=== PATIENT | female | born 1965 ===

== ENCOUNTER 2018-04-20 08:54 | Emergency (ER) | payer MEDICARE, OTHER ==
[2018-04-20 09:01] VITALS: BMI 25.7
[2018-04-20] MEDS ORDERED: Iohexol 240 (50 ml) PO STA (09:23)
[2018-04-20] MEDS ORDERED: Sodium Chloride 0.9% 1,000 ML IV ONE (09:23)
[2018-04-20] MEDS ORDERED: Iohexol 240 (50 ml) ONE (09:51)
[2018-04-20] MEDS ORDERED: Sodium Chloride 0.9% 1,000 ML ONE (09:52)
[2018-04-20 09:57] LABS: SQUAMOUS EPITHIAL < 1 /hpf (0-5); URINE BILIRUBIN NEGATIVE (NEGATIVE); URINE CLARITY Clear (Clear); URINE COLOR Yellow (YELLOW); URINE GLUCOSE (UA) NORMAL (Normal); URINE LEUKOCYTE ESTERASE NEG Leu/uL (Negative); URINE PROTEIN NEGATIVE (NEGATIVE); URINE UROBILINOGEN NORMAL mg/dL (0.2-1.0)
[2018-04-20 09:58] LABS: URINE BLOOD 1+ (NEGATIVE)
[2018-04-20 10:15] LABS: BASO # 0.1 K/uL (0.0-0.2); BASO % 1.2 % (0.0-2.0); EOS # 0.1 K/uL (0.0-0.7); EOS % 1.7 % (0.0-4.0); HEMOGLOBIN 12.7 g/dL (11.0-16.0); LYMPH % 34.2 % (20.0-40.0); MEAN CELL VOLUME 80.9 fL (81.0-99.0); MEAN CORPUSCULAR HEMOGLOBIN 25.8 pg (27.0-31.0); MEAN CORPUSCULAR HGB CONC 31.9 g/dL (33.0-37.0); MEAN PLATELET VOLUME 9.6 fL (7.2-11.7); MONO # 0.9 K/uL (0.0-0.8); MONO % 14.7 % (0.0-10.0); NEUT # 2.8 K/uL (1.8-7.0); NEUT % 48.2 % (50.0-75.0); NRBC % 0.1 % (0.0-2.0); RBC 4.92 Mil/uL (3.80-5.20); RED CELL DISTRIBUTION WIDTH 13.3 % (11.5-14.5); WHITE BLOOD COUNT 5.8 K/uL (4.8-10.8)
[2018-04-20 10:22] LABS: ALB/GLOB RATIO 1.2 (1.0-2.1); ALBUMIN 3.8 g/dL (3.5-5.0); ALT/SGPT 25 U/L (9-52); AST/SGOT 28 U/L (14-36); BLOOD UREA NITROGEN 12 mg/dL (7-17); CALCIUM 9.1 mg/dl (8.6-10.4); GFR NON-AFRICAN AMERICAN > 60; LIPASE 63 U/L (23-300)
[2018-04-20] MEDS ORDERED: Potassium Chloride 20 mEq/15 ml LIQ UD PO STA (10:25)
[2018-04-20] MEDS ORDERED: Potassium Chloride 20 mEq ER Tab PO ONE (10:35)
--- NOTE | 2018-04-20 11:01 | C.PDOC ---
History Of Present Illness 52 year old female presents to ED complaining of sharp intermittent left lower abdominal pain for 2 days that is cramping. States she had one episode of vomiting yesterday and had normal bowel movement. Otherwise she denies any feve r, flank pain, or dysuria. Time Seen by Provider: 04/20/18 09:07 Chief Complaint (Nursing): Abdominal Pain History Per: Patient History/Exam Limitations: no limitations Onset/Duration Of Symptoms: Days Current Symptoms Are (Timing): Still Present Past Medical History Reviewed: Historical Data, Nursing Documentation, Vital Signs Vital Signs: Last Vital Signs Temp 99.4 F 04/20/18 09:01 Pulse 119 H 04/20/18 09:22 Resp 22 04/20/18 09:22 BP 116/71 04/20/18 09:22 Pulse Ox 99 04/20/18 09:01 - Medical History PMH: Anxiety, Arthritis, Back Problems, Cardia Arrhythmia, Depression, Hyperthyroidism, Hypothyroidism Surgical History: Cholecystectomy, Endoscopy - [facility] Procedures INJECT/INFUSE NEC (03/08/14) Family History: States: No Known Family Hx - Social History Hx Tobacco Use: No Hx Alcohol Use: No Hx Substance Use: No - Immunization History Hx Tetanus Toxoid Vaccination: No Hx Influenza Vaccination: Yes Hx Pneumococcal Vaccination: No Review Of Systems Constitutional: Negative for: Fever Gastrointestinal: Positive for: Vomiting, Abdominal Pain (LLQ). Negative for: Other (Flank pain) Genitourinary: Negative for: Dysuria Physical Exam - Physical Exam Appears: Well, Non-toxic, No Acute Distress Skin: Warm, Dry, No Rash Head: Atraumatic, Normacephalic Eye(s): bilateral: Normal Inspection Oral Mucosa: Moist Neck: Normal ROM Chest: Symmetrical Cardiovascular: Rhythm Regular, No Murmur Respiratory: Normal Breath Sounds, No Rales, No Rhonchi, No Wheezing Gastrointestinal/Abdominal: Bowel Sounds (Normal), Soft, Tenderness (to LLQ), No Guarding, No Rebound Extremity: Bilateral: Atraumatic, Normal Color And Temperature, Normal ROM Neurological/Psych: Oriented x3, Normal Speech Gait: Steady ED Course And Treatment - Laboratory Results Result Diagrams: 04/20/18 10:00 04/20/18 10:00 Interpretation Of ECG: Normal sinus rhythm. No U waves. Rate From EC O2 Sat by Pulse Oximetry: 99 (RA) Pulse Ox Interpretation: Normal - CT Scan/US CT Abd/Pel Other Rad Studies (CT/US): Read By Radiologist, Radiology Report Reviewed CT/US Interpretation: FINDINGS: LOWER THORAX: The visualized lungs are clear. LIVER: Normal in size and fatty liver. No gross lesion . GALLBLADDER AND BILE DUCTS: Surgically absent. Mild intra and extrahepatic biliary ductal dilatation is in keeping with postcholecystectomy status. PANCREAS: Normal in size with homogeneous enhancement. No gross lesion or ductal dilatation. SPLEEN: Normal in size and appearance. ADRENALS: No discrete nodule. KIDNEYS AND URETERS: Normal in size with homogeneous enhancement. No hydronephrosis. No solid mass. VASCULATURE: No aortic aneurysm. BOWEL: The small bowel loops are normal in caliber. The colon is grossly normal in appearance. No bowel wall thickening or obstruction. APPENDIX: Normal appendix. PERITONEUM: No free fluid. No free air. LYMPH NODES: No enlarged lymph nodes. BLADDER: Well distended and normal in appearance. REPRODUCTIVE: The uterus is normal in size. BONES: No acute fracture. Grade 1 anterior listhesis of L4 on L5. OTHER FINDINGS: None. IMPRESSION: No acute abdominal or pelvic abnormality. Medical Decision Making Medical Decision Making: Impression: abdominal pain Plan: --CT Abd/Pel --EKG --Bloodwork --Omnipaque --Potassium Chloride --IV Fluids --Toradol --Urinalysis Progress: Labs reviewed and patient has hypokalemia 2.9. Patient was treated with oral and IV KCl EKG obtained and normal sinus. CT reviewed with no acute intrabdominal pathology Patient remained well in no acute distress. Patient was on secured entrance monitor with no rhythm changes. She reported feeling better, no fever and stable vital signs. Patient informed of results and stable for discharge and to follow up with PMD Disposition Counseled Patient/Family Regarding: Diagnosis, Need For Followup, Rx Given - Disposition Referrals: Tung Carter MD [Medical Doctor] - Disposition: HOME/ ROUTINE Disposition Time: 14:56 Condition: GOOD Additional Instructions: Hoy te evaluaron por dolor abdominal y vmitos. June laboratorios muestran potasio bajo y fueron tratados. La TC del abdomen era normal. Asegrese de comer alimentos balanceados y alimentos con potasio. Seguimiento con gastelum mdico o clnica. Prescriptions: Potassium Chloride 10 meq PO DAILY #4 capsule.er Instructions: Hypokalemia (DC), High Potassium Diet Print Language: INDONESIAN - POA Present On Arrival: None - Clinical Impression Clinical Impression: Hypokalemia - PA / WELDING SUPERVISOR / Resident Statement MD/DO has reviewed & agrees with the documentation as recorded. - Scribe Statement The provider has reviewed the documentation as recorded by the Scribe Alberta Tripathi All medical record entries made by the Frankieibdavid were at my direction and personally dictated by me. I have reviewed the chart and agree that the record accurately reflects my personal performance of the history, physical exam, medical decision making, and the department course for this patient. I have also personally directed, reviewed, and agree with the discharge instructions and disposition.
[2018-04-20] MEDS ORDERED: Iodixanol 320 MG/ML 100 ML BOTTLE IV ONE (11:28)
[2018-04-20 12:28] VITALS: RESP 18
--- NOTE | 2018-04-20 12:49 | CT ---
Date of service: 04/20/2018 PROCEDURE: CT Abdomen and Pelvis with contrast HISTORY: LLQ abd pain COMPARISON: 03/19/2014. TECHNIQUE: CT scan of the abdomen and pelvis was performed after administration of intravenous contrast. Oral contrast was administered. Coronal and sagittal reformatted images were obtained. Contrast dose: 100 mL Visipaque Radiation dose: Total exam DLP = 342.85 mGy-cm. This CT exam was performed using one or more of the following dose reduction techniques: Automated exposure control, adjustment of the mA and/or kV according to patient size, and/or use of iterative reconstruction technique. FINDINGS: LOWER THORAX: The visualized lungs are clear. LIVER: Normal in size and fatty liver. No gross lesion . GALLBLADDER AND BILE DUCTS: Surgically absent. Mild intra and extrahepatic biliary ductal dilatation is in keeping with postcholecystectomy status. PANCREAS: Normal in size with homogeneous enhancement. No gross lesion or ductal dilatation. SPLEEN: Normal in size and appearance. ADRENALS: No discrete nodule. KIDNEYS AND URETERS: Normal in size with homogeneous enhancement. No hydronephrosis. No solid mass. VASCULATURE: No aortic aneurysm. BOWEL: The small bowel loops are normal in caliber. The colon is grossly normal in appearance. No bowel wall thickening or obstruction. APPENDIX: Normal appendix. PERITONEUM: No free fluid. No free air. LYMPH NODES: No enlarged lymph nodes. BLADDER: Well distended and normal in appearance. REPRODUCTIVE: The uterus is normal in size. BONES: No acute fracture. Grade 1 anterior listhesis of L4 on L5. OTHER FINDINGS: None. IMPRESSION: No acute abdominal or pelvic abnormality.
[2018-04-20 12:54] VITALS: O2SAT 99
[2018-04-20] MEDS ORDERED: Potassium Chloride 20 mEq 100 ML ONE (13:04)
[2018-04-20 14:47] VITALS: BP 129/87; PULSE 107; TEMP 98.3
--- NOTE | 2018-04-22 14:53 | CARD ---
APPROVED REPORT Date of service: 04/20/2018 EKG Measurement Heart [id number] <Conclusion> Normal sinus rhythm Nonspecific T wave abnormality Prolonged QT Abnormal ECG
== END 2018-04-20 15:31 | disposition home or self-care (01) ==
LOC: C.ER 08:54
DX: E87.6 Hypokalemia (principal)
CPT/HCPCS: 74177; 80053; 81001; 83690; 84703; 85025; 93005; 96361; 96374; 99285; J1885; J3480; J7030; Q9966; Q9967

== ENCOUNTER 2018-06-18 14:39 | Outpatient (CLI) | payer MEDICARE | END 2018-06-18 14:40 | disposition home or self-care (01) | LOC: C.MRIC 14:39 | DX: M23.90 Unspecified internal derangement of unspecified knee (principal); M24.819 Other specific joint derangements of unspecified shoulder, not elsewhere classified ==

== ENCOUNTER 2018-07-07 07:37 | Outpatient (CLI) | payer MEDICARE, OTHER | END 2018-07-07 07:38 | disposition home or self-care (01) | LOC: C.NUCMED 07:37 ==

== ENCOUNTER 2018-07-08 09:02 | Outpatient (CLI) | payer MEDICARE | END 2018-07-08 09:03 | disposition home or self-care (01) | LOC: C.VASC 09:02 | DX: I73.9 Peripheral vascular disease, unspecified (principal) ==

== ENCOUNTER 2018-07-13 07:29 | Emergency (ER) | payer MEDICARE ==
[2018-07-13 07:35] VITALS: BMI 29.0
[2018-07-13 07:41] VITALS: TEMP 99.1
--- NOTE | 2018-07-13 08:01 | C.PDOC ---
History Of Present Illness 52 years old female presents to ED for complaints of itchy rash and cough that began 3 days ago. Patient reports she started taking new medications for thyroid and then she developed the symptoms associated with scratchy throat. Denies trouble breathing, fever or any other complaints. Time Seen by Provider: 07/13/18 07:41 Chief Complaint (Nursing): Allergic Reaction History Per: Patient History/Exam Limitations: no limitations Onset/Duration Of Symptoms: Days (3) Current Symptoms Are (Timing): Still Present Possible Cause: Medication Associated Symptoms: Skin Rash, Itching. denies: Trouble Swallowing Home/EMS Treatment: None Recent travel outside of the [place]: No Past Medical History Reviewed: Historical Data, Nursing Documentation, Vital Signs Vital Signs: Last Vital Signs Temp 99.1 F 07/13/18 07:35 Pulse 94 H 07/13/18 07:35 Resp 18 07/13/18 07:35 BP 147/94 H 07/13/18 07:35 Pulse Ox 99 07/13/18 07:35 - Medical History PMH: Anxiety, Arthritis, Back Problems, Cardia Arrhythmia, Depression, Hyperthyroidism, Hypothyroidism Surgical History: Cholecystectomy, Endoscopy - [facility] Procedures INJECT/INFUSE NEC (03/08/14) Family History: States: No Known Family Hx - Social History Hx Tobacco Use: No Hx Alcohol Use: No Hx Substance Use: No - Immunization History Hx Tetanus Toxoid Vaccination: No Hx Influenza Vaccination: Yes Hx Pneumococcal Vaccination: No Review Of Systems Except As Marked, All Systems Reviewed And Found Negative. Constitutional: Negative for: Fever, Chills ENT: Positive for: Other (Scratchy throat ) Respiratory: Positive for: Cough. Negative for: Shortness of Breath Gastrointestinal: Negative for: Nausea, Vomiting, Diarrhea Skin: Positive for: Rash Neurological: Negative for: Weakness, Numbness Physical Exam - Physical Exam Appears: Non-toxic, No Acute Distress Skin: Rash (Urticarial rash on chest and upper extremities ) Head: Atraumatic, Normacephalic Eye(s): bilateral: Normal Inspection, PERRL, EOMI Oral Mucosa: Moist Tongue: Normal Appearing, No Swelling Lips: Normal Appearing Throat: Normal, No Erythema, No Exudate, No Drooling, No Mass Neck: Normal ROM, Supple Chest: Symmetrical, No Tenderness Cardiovascular: Rhythm Regular, No Murmur Respiratory: Normal Breath Sounds, No Rales, No Rhonchi, No Wheezing Gastrointestinal/Abdominal: Normal Exam, Bowel Sounds (Active ), Soft, No Tenderness Extremity: Normal ROM, No Swelling Extremity: Bilateral: Atraumatic, Normal Color And Temperature, Normal ROM Pulses: Left Radial: Normal, Right Radial: Normal Neurological/Psych: Oriented x3, Normal Speech, Other (No focal deficits ) Gait: Steady ED Course And Treatment O2 Sat by Pulse Oximetry: 99 (RA) Pulse Ox Interpretation: Normal Medical Decision Making Medical Decision Making: Plan: * Methyl prednisolone * CXR EKG: * Normal sinus rhythm at 87 bpm * No ST elevations CXR: * Heart size normal * No infiltrates Disposition Counseled Patient/Family Regarding: Diagnosis, Need For Followup, Rx Given - Disposition Referrals: Tung Carter MD [Medical Doctor] - Disposition: HOME/ ROUTINE Disposition Time: 08:03 Condition: STABLE Prescriptions: Fexofenadine HCl [Margo NF] 180 mg PO DAILY 7 Days tab Methylprednisolone [Medrol Dose Pack (21 tabs)] 4 mg PO DAILY #21 mg Instructions: Hives, Adverse Drug Reactions, Adult Forms: [employer] [facility] (Spanish), Work Excuse - Clinical Impression Clinical Impression: Allergic urticaria - Scribe Statement The provider has reviewed the documentation as recorded by the Frankieibdavid Edwards All medical record entries made by the Frankieibdavid were at my direction and personally dictated by me. I have reviewed the chart and agree that the record accurately reflects my personal performance of the history, physical exam, medical decision making, and the department course for this patient. I have also personally directed, reviewed, and agree with the discharge instructions and disposition.
[2018-07-13 08:46] VITALS: BP 142/90; PULSE 80; RESP 20; O2SAT 100
--- NOTE | 2018-07-13 15:19 | RAD ---
Date of service: 07/13/2018 HISTORY: cough COMPARISON: No prior. TECHNIQUE: Chest PA and lateral FINDINGS: LUNGS: The interstitial markings are increased and coarsened; rule out sequela of reactive/inflammatory airway disease or viral illness. Minimal biapical pleural thickening also felt to be present PLEURA: No significant pleural effusion identified. No pneumothorax apparent. CARDIOVASCULAR: Minimal aortic atherosclerotic calcification present. Normal cardiac size. No pulmonary vascular congestion. OSSEOUS STRUCTURES: Minor multilevel degenerative spondylosis of the thoracic spine VISUALIZED UPPER ABDOMEN: Normal. OTHER FINDINGS: None. IMPRESSION: The interstitial markings are increased and coarsened; rule out sequela of reactive/inflammatory airway disease or viral illness.
--- NOTE | 2018-07-14 22:32 | CARD ---
APPROVED REPORT Date of service: 07/13/2018 EKG Measurement Heart [id number] <Conclusion> Normal sinus rhythm Possible Left atrial enlargement Left ventricular hypertrophy Abnormal ECG
== END 2018-07-13 08:46 | disposition home or self-care (01) ==
LOC: C.ER 07:29
DX: L50.0 Allergic urticaria (principal)
CPT/HCPCS: 71046; 93005; 96374; 99285; J2930

== ENCOUNTER 2018-07-21 08:22 | Outpatient (CLI) | payer MEDICARE | END 2018-07-21 08:23 | disposition home or self-care (01) | LOC: C.MRIC 08:23 | DX: M54.12 Radiculopathy, cervical region (principal); M54.17 Radiculopathy, lumbosacral region ==

== ENCOUNTER 2018-07-21 08:36 | Outpatient (CLI) | payer MEDICARE | END 2018-07-21 08:37 | disposition home or self-care (01) | LOC: C.LAB 08:36 ==

== ENCOUNTER 2018-08-08 08:34 | Outpatient (CLI) | payer MEDICARE | END 2018-08-08 08:35 | disposition home or self-care (01) | LOC: C.LAB 08:34 | DX: R30.0 Dysuria (principal); Z01.818 Encounter for other preprocedural examination ==